=== PATIENT | female | born 1990 | race Caucasian/White ===

== ENCOUNTER 2016-05-12 10:42 | Outpatient (CLI) | payer OTHER ==
[~2016-05-12 10:42] MED LIST: BUSPIRONE HCL5 MG PO; GABAPENTIN600 MG PO; METHADONE HCL10 MG PO; WELLBUTRIN SR150 MG PO
--- NOTE | 2016-05-12 13:02 | DIAGNOSTIC IMAGING REPORT ---
PROCEDURE: US OB RE-EVALUATION INDICATION: SMALL FOR DATES TECHNIQUE: Transabdominal lopes scale and color Doppler imaging was obtained of the third trimester gravid uterus. COMPARISON: 12/25/2015 , 01/18/2016, 02/15/2016 FINDINGS: Single live intrauterine is in vertex presentation. Regular heart rate at 144 beats per minute. Placenta is posterior and has a normal appearance without previa or abruption. No evidence of anterior uterine hemorrhage. The cervix is not well seen, shadowed by the head, but likely measures approximately 3 cm in length. Amniotic fluid index is 13.4 cm, within normal limits for 33-week gestation. Systolic to diastolic umbilical artery ratios ranged from 2.93-3.09, normal. Biparietal diameter 7.4 cm, 29 weeks 4 days Head circumference 27.2 cm, 29 weeks 5 days Abdominal circumference 26.1 cm, 30 weeks 2 days Femur length 6.0 cm, 31 weeks 1 day Estimated weight 1571 plus/minus 236 g, 30 weeks 5 days Composite gestational age 30 weeks 1 day IMPRESSION: 1. Single viable intrauterine , small for gestational age, measuring 30 weeks 1 day on today's exam, 18 days behind the expected gestational age of 32 weeks 5 days. 2. The growth is symmetric. 3. Amniotic fluid volume and systolic to diastolic umbilical artery ratios are normal. 4. Normal posterior placenta without previa. Resolved uterine hemorrhage. 5. Discussed with Dr. Simmons.
== END 2016-05-12 23:00 ==
LOC: US SRH 10:42
DX: O36.5930 Maternal care for other known or suspected poor fetal growth, third trimester, not applicable or unspecified (principal); Z3A.30 30 weeks gestation of pregnancy

== ENCOUNTER 2016-05-22 19:59 | Emergency (ER) | payer OTHER ==
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
--- NOTE | 2016-05-22 20:49 | ED ORDER SUMMARY ---
..... Patient: YUSEF BAKER OrderSheet [facility] VisitID: [id number] [address] [place] [address] 26y, F Registration Date/Time: 05/22/2016 ORDER SHEET Weight: 62.1 kg (stated) Allergies: No Known Drug Allergy GENERAL ORDERS: Suture Set-up: (20:46 05/22/2016 HBivens A.R.N.P.) (20:50 DDean R.N.) Heart Tones (20:46 05/22/2016 HBivens A.R.N.P.) (20:50 DDean R.N.) MEDICATION ORDERS: IV FLUIDS: ORDER SHEET NOTES: [Electronically signed by Celia Mendosa R.N. (21:23 05/22/2016)] [Electronically signed by Cary Keen.R.N.PMaria Eugenia (21:53 05/22/2016)] [Electronically locked/signed by Celia Mendosa R.N. (21:23 05/22/2016)]
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
--- NOTE | 2016-05-22 20:49 | ED ORDER SUMMARY ---
..... Patient: YUSEF BAKER OrderSheet [facility] VisitID: [id number] [address] [place] [address] 26y, F Registration Date/Time: 05/22/2016 ORDER SHEET Weight: 62.1 kg (stated) Allergies: No Known Drug Allergy GENERAL ORDERS: Suture Set-up: (20:46 05/22/2016 HBivens A.R.N.P.) (20:50 DDean R.N.) Heart Tones (20:46 05/22/2016 HBivens A.R.N.P.) (20:50 DDean R.N.) MEDICATION ORDERS: IV FLUIDS: ORDER SHEET NOTES: [Electronically signed by Celia Mendosa R.N. (21:23 05/22/2016)] [Electronically signed by Cary Keen.R.N.PMaria Eugenia (21:53 05/22/2016)] [Electronically locked/signed by Celia Mendosa R.N. (21:23 05/22/2016)]
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
--- NOTE | 2016-05-22 21:54 | ED MED RECONCILIATION SUMMARY ---
Patient: YUSEF BAKER Medication Reconciliation Report [facility] VisitID: [id number] [address] [place] [address] 26y, F Registration Date/Time: 05/22/2016 Weight: 62.1 kg Height/Length: 62 in. BMI: 25.1 ALLERGIES: No Known Drug Allergy The patient's Home Medications are listed below: THE FOLLOWING MEDICATIONS NEED TO BE RECONCILED: Gabapentin Oral The source(s) of the original Home Medication information: patient The following Medications were given to the patient in the Emergency Department: None. The following Medications were prescribed to the patient: None.
--- NOTE | 2016-05-22 21:54 | ED MAR SUMMARY ---
..... Medication Administration Record [facility] [address] [place], [place] [id number] Patient: YUSEF BAKER Visit ID: [id number] 26y, F Weight: 62.1 kg Height/Length: 62 in BMI: 25.1 ALLERGIES: No Known Drug Allergy
--- NOTE | 2016-05-22 21:54 | ED MAR SUMMARY ---
..... Medication Administration Record [facility] [address] [place], [place] [id number] Patient: YUSEF BAKER Visit ID: [id number] 26y, F Weight: 62.1 kg Height/Length: 62 in BMI: 25.1 ALLERGIES: No Known Drug Allergy
--- NOTE | 2016-05-22 21:54 | ED MED RECONCILIATION SUMMARY ---
Patient: YUSEF BAKER Medication Reconciliation Report [facility] VisitID: [id number] [address] [place] [address] 26y, F Registration Date/Time: 05/22/2016 Weight: 62.1 kg Height/Length: 62 in. BMI: 25.1 ALLERGIES: No Known Drug Allergy The patient's Home Medications are listed below: THE FOLLOWING MEDICATIONS NEED TO BE RECONCILED: Gabapentin Oral The source(s) of the original Home Medication information: patient The following Medications were given to the patient in the Emergency Department: None. The following Medications were prescribed to the patient: None.
== END 2016-05-22 20:52 | disposition home or self-care (01) ==
LOC: ED SRH 19:59
DX: S01.511A Laceration without foreign body of lip, initial encounter (principal); M79.1 Myalgia; V47.0XXA Car driver injured in collision with fixed or stationary object in nontraffic accident, initial encounter; Y93.89 Activity, other specified; Y92.9 Unspecified place or not applicable; Y99.9 Unspecified external cause status; Z3A.38 38 weeks gestation of pregnancy

== ENCOUNTER 2016-06-13 10:23 | Outpatient (CLI) | payer OTHER ==
--- NOTE | 2016-06-13 12:56 | DIAGNOSTIC IMAGING REPORT ---
PROCEDURE: US OB RE-EVALUATION INDICATION: REPEAT; SMALL FOR GESTATIONAL AGE TECHNIQUE: Gaona scale, color and spectral Doppler images of the gravid uterus. COMPARISON: OB ultrasound 05/12/2016, 01/18/2016 and 12/25/2015.. FINDINGS: Single intrauterine with vertex presentation, left posterior placenta without previa. Heart rate 121 bpm. ELO measures 14.4 cm. Stomach, kidneys and bladder are grossly normal. Cord ratios 2.9, normal. BPD 8.2 cm, 33 weeks 1 day; head circumference 30.4 cm, 33 weeks 5 days; abdominal circumference 29.4 cm, 33 weeks 2 days; femur length 6.7 cm, 34 weeks 5 days. Composite age of 33 weeks 5 days plus/minus 2 weeks 5 days. CAROLYN 07/27/2016. Estimated weight 2269 g plus/minus 568 g (less than 2nd percentile). IMPRESSION: 1. Single live intrauterine , vertex, 33 weeks 5 days plus/minus 2 weeks 5 days 2. CAROLYN 07/27/2016, 24 days delayed growth, consistent with symmetric IUGR. 3. Estimated weight 2269 g plus/minus 568 g (less than 2nd percentile) 4. Results discussed with Dr. Mares.
== END 2016-06-13 23:00 ==
LOC: US SRH 10:23
DX: Z34.93 Encounter for supervision of normal pregnancy, unspecified, third trimester (principal); Z3A.33 33 weeks gestation of pregnancy

== ENCOUNTER 2016-06-15 17:36 | Outpatient (CLI) | payer OTHER | END 2016-06-15 18:55 | disposition home or self-care (01) | LOC: NST SRH 17:36 → OB SRH 17:38 → NST SRH 18:55 | PROC: 4A0HXCZ Measurement of Products of Conception, Cardiac Rate, External Approach (ICD-10-PCS; principal; 2016-06-15) | DX: O36.5930 Maternal care for other known or suspected poor fetal growth, third trimester, not applicable or unspecified (principal); Z3A.37 37 weeks gestation of pregnancy ==

== ENCOUNTER 2016-09-03 17:06 | Emergency (ER) | payer OTHER ==
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
--- NOTE | 2016-09-03 18:22 | ED ORDER SUMMARY ---
..... Patient: YUSEF BAKER OrderSheet [facility] VisitID: [id number] [address] [place] [address] 26y, F Registration Date/Time: 09/03/2016 ORDER SHEET Weight: 56.6 kg (stated) Allergies: No Known Drug Allergy GENERAL ORDERS: MEDICATION ORDERS: Zofran ODT PO 4 mg (NOW) (18:22 09/03/2016 HBivens A.R.N.P.) (Ack 18:37 KPage-Kuchan R.N.) (18:45 KPage-Kuchan R.N.) Xanax PO 0.5 mg (NOW) (18:22 09/03/2016 HBivens A.R.N.P.) (Ack 18:37 KPage-Kuchan R.N.) (18:45 KPage-Kuchan R.N.) IV FLUIDS: ORDER SHEET NOTES: [Electronically signed by Marcos Nolasco RMaria EugeniaNMaria Eugenia (20:39 09/03/2016)] [Electronically signed by Cary KeenR.N.P. (23:07 09/03/2016)] [Electronically locked/signed by Marcos Nolasco R.N. (20:39 09/03/2016)]
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
--- NOTE | 2016-09-03 18:22 | ED ORDER SUMMARY ---
..... Patient: YUSEF BAKER OrderSheet [facility] VisitID: [id number] [address] [place] [address] 26y, F Registration Date/Time: 09/03/2016 ORDER SHEET Weight: 56.6 kg (stated) Allergies: No Known Drug Allergy GENERAL ORDERS: MEDICATION ORDERS: Zofran ODT PO 4 mg (NOW) (18:22 09/03/2016 HBivens A.R.N.P.) (Ack 18:37 KPage-Kuchan R.N.) (18:45 KPage-Kuchan R.N.) Xanax PO 0.5 mg (NOW) (18:22 09/03/2016 HBivens A.R.N.P.) (Ack 18:37 KPage-Kuchan R.N.) (18:45 KPage-Kuchan R.N.) IV FLUIDS: ORDER SHEET NOTES: [Electronically signed by Marcos Nolasco RMaria EugeniaNMaria Eugenia (20:39 09/03/2016)] [Electronically signed by Cary KeenR.N.P. (23:07 09/03/2016)] [Electronically locked/signed by Marcos Nolasco R.N. (20:39 09/03/2016)]
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
--- NOTE | 2016-09-03 23:07 | ED MED RECONCILIATION SUMMARY ---
Patient: YUSEF BAKER Medication Reconciliation Report [facility] VisitID: [id number] [address] [place] [address] 26y, F Registration Date/Time: 09/03/2016 Weight: 56.6 kg Height/Length: 62 in. BMI: 22.8 ALLERGIES: No Known Drug Allergy The patient's Home Medications are listed below: THE FOLLOWING MEDICATIONS NEED TO BE RECONCILED: Gabapentin Oral The source(s) of the original Home Medication information: patient The following Medications were given to the patient in the Emergency Department: Zofran ODT [PO] PO 4 mg, administered: 09/03/2016 6:45:00 PM Xanax [PO] PO 0.5 mg, administered: 09/03/2016 6:45:00 PM The following Medications were prescribed to the patient: Xanax 0.25 mg: Take 1 orally every 8 hours as needed for anxiety. Dispense fifteen (15). No refills. Substitution is permissible. -- Cary Keen A.R.N.P.
--- NOTE | 2016-09-03 23:07 | ED DISCHARGE INSTRUCTIONS ---
Patient: YUSEF BAKER General Instructions [facility] VisitID: [id number] [place] [address] 26y, F Registration Date/Time: 09/03/2016 Chronic substance abuse- methadone and oxycodone with intoxication and anxiety. INSTRUCTIONS Warnings: GENERAL WARNINGS: Return or contact your physician immediately if your condition worsens or changes unexpectedly, if not improving as expected, or if other problems arise. Specifically return if problem worsens. Prescription Medications: Xanax 0.25 mg: Take 1 orally every 8 hours as needed for anxiety. Dispense fifteen (15). No refills. Substitution is permissible. Follow-up: Follow up with your doctor Sunday as scheduled even if well. Summary of care provided to patient. Understanding of the discharge instructions verbalized by patient. ADDITIONAL INFORMATION Drug Abuse Use and abuse of such drugs as marijuana, amphetamines (speed, crank), cocaine, heroin or prescription pain medicines (Vicodin, codeine), sedatives and sleeping pills (Valium, Klonopin), PCP, mescaline and LSD may lead to addiction or dependence. Once this occurs, you are at greater risk for any of the following: Craving for the drug and unable to stop using the drug even though you think you want to stop (psychological dependence) Drug withdrawal symptoms if you stop taking the drug (physical dependence) Loss of your job or your family Arrest, conviction and skilled nursing sentence for possession of an illegal substance or for driving under the influence of such a substance Accidental injuries to yourself or others while you are under the influence of the drug (in a car or at home). HIV infection (much greater risk if you use IV drugs) Other sexually transmitted diseases (herpes, chlamydia, gonorrhea and others) Severe and fatal infection of the heart valves (if you use IV drugs) Stroke, heart attack, hepatitis B or C, kidney failure from overdose Home Care: Admit you have a drug problem. Ask for help from your family and close friends. Seek professional help. This could be in the form of individual psychotherapy or counseling or an outpatient, inpatient, or residential drug treatment program. Join a self-help group for drug abuse. Avoid friends who abuse drugs themselves or tempt you to continue abusing drugs. Eat a balanced diet and begin a regular exercise program. Follow Up with your doctor or as advised by our staff. Contact one of the resources below for help. National [place] on Alcoholism and Drug Dependence www.ncadd.org 477-075-DVMI Narcotics Anonymous www.na.org 156-630-0943 National Alcohol and Substance Abuse Information Center (for referral to treatment programs) www.[employer] 370-451-3282 Get Prompt Medical Attention if any of the following occur: Agitation, anxiety, unable to sleep Unintended weight loss (more than 10 to 15 pounds over 3 months) Seizure Chest pain Fever of 100.4F (38C) or higher, or as directed by your healthcare provider Excess drowsiness or inability to be awakened Shortness of breath Slow breathing under 8 breaths per minute Cough with colored sputum Redness, swelling or tenderness at an injection site Opiate Abuse Use and abuse of heroin or prescription pain medicines (Vicodin, codeine) may lead to physical ADDICTION or psychological DEPENDENCE. Once this occurs, you are at greater risk for any of the following: - Craving for the drug and unable to stop using the drug even though you think you want to stop (psychological dependence) - Drug withdrawal symptoms if you stop taking the drug (physical addiction) - Loss of your job or your family - Arrest, conviction and skilled nursing sentence for possession of an illegal substance or for driving under the influence of such a substance - Accidental injuries to yourself or others while you are under the influence of the drug (in a car or at home). - HIV infection (much greater risk if you use IV drugs) - Other sexually transmitted diseases (Herpes, chlamydia, gonorrhea and others) - Severe and fatal infection of the heart valves (if you use IV drugs) - Stroke, heart attack, hepatitis B or C, kidney failure - from overdose Home Care: 1) Admit you have a drug problem. Ask for help from your family and close friends. 2) Seek professional help. This could be individual psychotherapy, counseling, or a drug treatment program (outpatient or residential). 3) Join a self-help group for drug abuse. 4) Avoid friends who abuse drugs themselves or tempt you to continue your habit 5) Eat a balanced diet and begin a regular exercise program. Follow Up with your doctor or as advised by our staff. Contact one of the resources below for help. National Algaaciq on Alcoholism and Drug Dependence, www.ncadd.org 018-879-TYHJ Narcotics Anonymous (check your phone book for a local listing or call 205-468-2501) www.na.org National Alcohol and Substance Abuse Information Center (for referral to treatment programs) Www.Care.com 997-924-8922 Get Prompt Medical Attention if any of the following occur: -- Symptoms of withdrawal (agitation, anxiety, trembling, sweats, diarrhea, unable to sleep) -- Chest pain -- Unexplained fever over 100.4 F (38.0 C) -- Excessive drowsiness or inability to be awakened -- Slow breathing under 8 breaths per minute -- Shortness of breath or cough with colored sputum -- Redness, swelling or tenderness at an injection site Pain Management: Chronic You have a painful condition that has required frequent use of narcotic-type pain medicine. We would like to see that you receive the best possible care for your problem. To achieve this, you must have apersonal physician who can supervise a treatment plan for you. You may locate a personal physician on your own or contact one of the doctors whose name has been given to you. If your physician determines that you need to visit the ER for pain control, that doctor should provide you with a PAIN CONTRACT. This is a letter from your doctor which describes what pain medicine you may receive, how much and how often. You sign it agreeing to the terms of the treatment plan. Bring this with you each time you come to this facility. It will help the Emergency Physician provide the proper treatment for you with minimal delay. Please Note: IN THE FUTURE YOU WILL NOT BE ABLE TO RECEIVE Narcotic Pain Medicine From This Facility Without A Pain Contract Or Telephone Approval From Your Personal Physician. Alprazolam Oral tablet What is this medicine? ALPRAZOLAM (al PRAY isabell manning) is a benzodiazepine. It is used to treat anxiety and panic attacks. How should I use this medicine? Take this medicine by mouth with a glass of water. Follow the directions on the prescription label. Take your medicine at regular intervals. Do not take it more often than directed. If you have been taking this medicine regularly for some time, do not suddenly stop taking it. You must gradually reduce the dose or you may get severe side effects. Ask your doctor or health day care provider for advice. Even after you stop taking this medicine it can still affect your body for several days. Talk to your solution strategist regarding the use of this medicine in children. Special care may be needed. What side effects may I notice from receiving this medicine? Side effects that you should report to your doctor or health day care provider as soon as possible: allergic reactions like skin rash, itching or hives, swelling of the face, lips, or tongue confusion, forgetfulness depression difficulty sleeping difficulty speaking feeling faint or lightheaded, falls mood changes, excitability or aggressive behavior muscle cramps trouble passing urine or change in the amount of urine unusually weak or tired Side effects that usually do not require medical attention (report to your doctor or health day care provider if they continue or are bothersome): change in sex drive or performance changes in appetite What may interact with this medicine? Do not take this medicine with any of the following medications: certain medicines for HIV infection or AIDS ketoconazole itraconazole This medicine may also interact with the following medications: control pills certain macrolide antibiotics like clarithromycin, erythromycin, troleandomycin cimetidine cyclosporine ergotamine grapefruit juice herbal or dietary supplements like kava kava, melatonin, dehydroepiandrosterone, DHEA, Horacio's Wort or valerian imatinib, [id number] isoniazid levodopa medicines for depression, anxiety, or psychotic disturbances prescription pain medicines rifampin, rifapentine, or rifabutin some medicines for blood pressure or heart problems some medicines for seizures like carbamazepine, oxcarbazepine, phenobarbital, phenytoin, primidone What if I miss a dose? If you miss a dose, take it as soon as you can. If it is almost time for your next dose, take only that dose. Do not take double or extra doses. Where should I keep my medicine? Keep out of the reach of children. This medicine can be abused. Keep your medicine in a safe place to protect it from theft. Do not share this medicine with anyone. Selling or giving away this medicine is dangerous and against the law. Store at room temperature between 20 and 25 degrees C (68 and 77 degrees F). Throw away any unused medicine after the expiration date. What should I tell my health care provider before I take this medicine? They need to know if you have any of these conditions: an alcohol or drug abuse problem bipolar disorder, depression, psychosis or other mental health conditions glaucoma kidney or liver disease lung or breathing disease myasthenia gravis Parkinson's disease porphyria seizures or a history of seizures suicidal thoughts an unusual or allergic reaction to alprazolam, other benzodiazepines, foods, dyes, or preservatives or trying to get breast-feeding What should I watch for while using this medicine? Visit your doctor or health day care provider for regular checks on your progress. Your body can become dependent on this medicine. Ask your doctor or health day care provider if you still need to take it. You may get drowsy or dizzy. Do not drive, use machinery, or do anything that needs mental alertness until you know how this medicine affects you. To reduce the risk of dizzy and fainting spells, do not stand or sit up quickly, especially if you are an older patient. Alcohol may increase dizziness and drowsiness. Avoid alcoholic drinks. Do not treat yourself for coughs, colds or allergies without asking your doctor or health day care provider for advice. Some ingredients can increase possible side effects. You have been given the following additional information: Drug Abuse Opiate Abuse Drug Seeking Behavior, Pain Contract Required Alprazolam Oral tablet (Electronically signed by Cary Keen A.R.N.P. 09/03/2016 23:07)
--- NOTE | 2016-09-03 23:07 | ED DISCHARGE INSTRUCTIONS ---
Patient: YUSEF BAKER General Instructions [facility] VisitID: [id number] [place] [address] 26y, F Registration Date/Time: 09/03/2016 Chronic substance abuse- methadone and oxycodone with intoxication and anxiety. INSTRUCTIONS Warnings: GENERAL WARNINGS: Return or contact your physician immediately if your condition worsens or changes unexpectedly, if not improving as expected, or if other problems arise. Specifically return if problem worsens. Prescription Medications: Xanax 0.25 mg: Take 1 orally every 8 hours as needed for anxiety. Dispense fifteen (15). No refills. Substitution is permissible. Follow-up: Follow up with your doctor Sunday as scheduled even if well. Summary of care provided to patient. Understanding of the discharge instructions verbalized by patient. ADDITIONAL INFORMATION Drug Abuse Use and abuse of such drugs as marijuana, amphetamines (speed, crank), cocaine, heroin or prescription pain medicines (Vicodin, codeine), sedatives and sleeping pills (Valium, Klonopin), PCP, mescaline and LSD may lead to addiction or dependence. Once this occurs, you are at greater risk for any of the following: Craving for the drug and unable to stop using the drug even though you think you want to stop (psychological dependence) Drug withdrawal symptoms if you stop taking the drug (physical dependence) Loss of your job or your family Arrest, conviction and care home sentence for possession of an illegal substance or for driving under the influence of such a substance Accidental injuries to yourself or others while you are under the influence of the drug (in a car or at home). HIV infection (much greater risk if you use IV drugs) Other sexually transmitted diseases (herpes, chlamydia, gonorrhea and others) Severe and fatal infection of the heart valves (if you use IV drugs) Stroke, heart attack, hepatitis B or C, kidney failure from overdose Home Care: Admit you have a drug problem. Ask for help from your family and close friends. Seek professional help. This could be in the form of individual psychotherapy or counseling or an outpatient, inpatient, or residential drug treatment program. Join a self-help group for drug abuse. Avoid friends who abuse drugs themselves or tempt you to continue abusing drugs. Eat a balanced diet and begin a regular exercise program. Follow Up with your doctor or as advised by our staff. Contact one of the resources below for help. National [place] on Alcoholism and Drug Dependence www.ncadd.org 148-959-YJVD Narcotics Anonymous www.na.org 756-172-2685 National Alcohol and Substance Abuse Information Center (for referral to treatment programs) www.ePatientFinder 832-340-1005 Get Prompt Medical Attention if any of the following occur: Agitation, anxiety, unable to sleep Unintended weight loss (more than 10 to 15 pounds over 3 months) Seizure Chest pain Fever of 100.4F (38C) or higher, or as directed by your healthcare provider Excess drowsiness or inability to be awakened Shortness of breath Slow breathing under 8 breaths per minute Cough with colored sputum Redness, swelling or tenderness at an injection site Opiate Abuse Use and abuse of heroin or prescription pain medicines (Vicodin, codeine) may lead to physical ADDICTION or psychological DEPENDENCE. Once this occurs, you are at greater risk for any of the following: - Craving for the drug and unable to stop using the drug even though you think you want to stop (psychological dependence) - Drug withdrawal symptoms if you stop taking the drug (physical addiction) - Loss of your job or your family - Arrest, conviction and care home sentence for possession of an illegal substance or for driving under the influence of such a substance - Accidental injuries to yourself or others while you are under the influence of the drug (in a car or at home). - HIV infection (much greater risk if you use IV drugs) - Other sexually transmitted diseases (Herpes, chlamydia, gonorrhea and others) - Severe and fatal infection of the heart valves (if you use IV drugs) - Stroke, heart attack, hepatitis B or C, kidney failure - from overdose Home Care: 1) Admit you have a drug problem. Ask for help from your family and close friends. 2) Seek professional help. This could be individual psychotherapy, counseling, or a drug treatment program (outpatient or residential). 3) Join a self-help group for drug abuse. 4) Avoid friends who abuse drugs themselves or tempt you to continue your habit 5) Eat a balanced diet and begin a regular exercise program. Follow Up with your doctor or as advised by our staff. Contact one of the resources below for help. National [place] on Alcoholism and Drug Dependence, www.ncadd.org 474-911-NQUJ Narcotics Anonymous (check your phone book for a local listing or call 016-615-6291) www.na.org National Alcohol and Substance Abuse Information Center (for referral to treatment programs) Www.[employer] 212-421-1328 Get Prompt Medical Attention if any of the following occur: -- Symptoms of withdrawal (agitation, anxiety, trembling, sweats, diarrhea, unable to sleep) -- Chest pain -- Unexplained fever over 100.4 F (38.0 C) -- Excessive drowsiness or inability to be awakened -- Slow breathing under 8 breaths per minute -- Shortness of breath or cough with colored sputum -- Redness, swelling or tenderness at an injection site Pain Management: Chronic You have a painful condition that has required frequent use of narcotic-type pain medicine. We would like to see that you receive the best possible care for your problem. To achieve this, you must have apersonal physician who can supervise a treatment plan for you. You may locate a personal physician on your own or contact one of the doctors whose name has been given to you. If your physician determines that you need to visit the ER for pain control, that doctor should provide you with a PAIN CONTRACT. This is a letter from your doctor which describes what pain medicine you may receive, how much and how often. You sign it agreeing to the terms of the treatment plan. Bring this with you each time you come to this facility. It will help the Emergency Physician provide the proper treatment for you with minimal delay. Please Note: IN THE FUTURE YOU WILL NOT BE ABLE TO RECEIVE Narcotic Pain Medicine From This Facility Without A Pain Contract Or Telephone Approval From Your Personal Physician. Alprazolam Oral tablet What is this medicine? ALPRAZOLAM (al PRAY isabell manning) is a benzodiazepine. It is used to treat anxiety and panic attacks. How should I use this medicine? Take this medicine by mouth with a glass of water. Follow the directions on the prescription label. Take your medicine at regular intervals. Do not take it more often than directed. If you have been taking this medicine regularly for some time, do not suddenly stop taking it. You must gradually reduce the dose or you may get severe side effects. Ask your doctor or health resident caregiver for advice. Even after you stop taking this medicine it can still affect your body for several days. Talk to your pmp regarding the use of this medicine in children. Special care may be needed. What side effects may I notice from receiving this medicine? Side effects that you should report to your doctor or health resident caregiver as soon as possible: allergic reactions like skin rash, itching or hives, swelling of the face, lips, or tongue confusion, forgetfulness depression difficulty sleeping difficulty speaking feeling faint or lightheaded, falls mood changes, excitability or aggressive behavior muscle cramps trouble passing urine or change in the amount of urine unusually weak or tired Side effects that usually do not require medical attention (report to your doctor or health resident caregiver if they continue or are bothersome): change in sex drive or performance changes in appetite What may interact with this medicine? Do not take this medicine with any of the following medications: certain medicines for HIV infection or AIDS ketoconazole itraconazole This medicine may also interact with the following medications: control pills certain macrolide antibiotics like clarithromycin, erythromycin, troleandomycin cimetidine cyclosporine ergotamine grapefruit juice herbal or dietary supplements like kava kava, melatonin, dehydroepiandrosterone, DHEA, Horacio's Wort or valerian imatinib, [id number] isoniazid levodopa medicines for depression, anxiety, or psychotic disturbances prescription pain medicines rifampin, rifapentine, or rifabutin some medicines for blood pressure or heart problems some medicines for seizures like carbamazepine, oxcarbazepine, phenobarbital, phenytoin, primidone What if I miss a dose? If you miss a dose, take it as soon as you can. If it is almost time for your next dose, take only that dose. Do not take double or extra doses. Where should I keep my medicine? Keep out of the reach of children. This medicine can be abused. Keep your medicine in a safe place to protect it from theft. Do not share this medicine with anyone. Selling or giving away this medicine is dangerous and against the law. Store at room temperature between 20 and 25 degrees C (68 and 77 degrees F). Throw away any unused medicine after the expiration date. What should I tell my health care provider before I take this medicine? They need to know if you have any of these conditions: an alcohol or drug abuse problem bipolar disorder, depression, psychosis or other mental health conditions glaucoma kidney or liver disease lung or breathing disease myasthenia gravis Parkinson's disease porphyria seizures or a history of seizures suicidal thoughts an unusual or allergic reaction to alprazolam, other benzodiazepines, foods, dyes, or preservatives or trying to get breast-feeding What should I watch for while using this medicine? Visit your doctor or health resident caregiver for regular checks on your progress. Your body can become dependent on this medicine. Ask your doctor or health resident caregiver if you still need to take it. You may get drowsy or dizzy. Do not drive, use machinery, or do anything that needs mental alertness until you know how this medicine affects you. To reduce the risk of dizzy and fainting spells, do not stand or sit up quickly, especially if you are an older patient. Alcohol may increase dizziness and drowsiness. Avoid alcoholic drinks. Do not treat yourself for coughs, colds or allergies without asking your doctor or health resident caregiver for advice. Some ingredients can increase possible side effects. You have been given the following additional information: Drug Abuse Opiate Abuse Drug Seeking Behavior, Pain Contract Required Alprazolam Oral tablet (Electronically signed by Cary Keen A.R.N.P. 09/03/2016 23:07)
--- NOTE | 2016-09-03 23:07 | ED MED RECONCILIATION SUMMARY ---
Patient: YUSEF BAKER Medication Reconciliation Report [facility] VisitID: [id number] [address] [place] [address] 26y, F Registration Date/Time: 09/03/2016 Weight: 56.6 kg Height/Length: 62 in. BMI: 22.8 ALLERGIES: No Known Drug Allergy The patient's Home Medications are listed below: THE FOLLOWING MEDICATIONS NEED TO BE RECONCILED: Gabapentin Oral The source(s) of the original Home Medication information: patient The following Medications were given to the patient in the Emergency Department: Zofran ODT [PO] PO 4 mg, administered: 09/03/2016 6:45:00 PM Xanax [PO] PO 0.5 mg, administered: 09/03/2016 6:45:00 PM The following Medications were prescribed to the patient: Xanax 0.25 mg: Take 1 orally every 8 hours as needed for anxiety. Dispense fifteen (15). No refills. Substitution is permissible. -- Cary Keen A.R.N.P.
--- NOTE | 2016-09-03 23:07 | ED MAR SUMMARY ---
..... Medication Administration Record [facility] [address] [place] [address] Patient: YUSEF BAKER Visit ID: [id number] 26y, F Weight: 56.6 kg Height/Length: 62 in BMI: 22.8 ALLERGIES: No Known Drug Allergy Given 18:45 09/03/2016 Marcos Nolasco RJeff Medication Administered: ZOFRAN ODT [PO] (ONDANSETRON), Dose: 4 mg PO. Medication Ordered: Zofran ODT PO 4 mg (NOW). Given 18:45 09/03/2016 Marcos Nolasco, RMaria EugeniaNMaria Eugenia Medication Administered: XANAX [PO] (ALPRAZOLAM), Dose: 0.5 mg PO. Medication Ordered: Xanax PO 0.5 mg (NOW).
--- NOTE | 2016-09-03 23:07 | ED MAR SUMMARY ---
..... Medication Administration Record [address] [place] [address] Patient: YUSEF BAKER Visit ID: [id number] 26y, F Weight: 56.6 kg Height/Length: 62 in BMI: 22.8 ALLERGIES: No Known Drug Allergy Given 18:45 09/03/2016 Marcos Nolasco RJeff Medication Administered: ZOFRAN ODT [PO] (ONDANSETRON), Dose: 4 mg PO. Medication Ordered: Zofran ODT PO 4 mg (NOW). Given 18:45 09/03/2016 Marcos Nolasco, RMaria EugeniaNMaria Eugenia Medication Administered: XANAX [PO] (ALPRAZOLAM), Dose: 0.5 mg PO. Medication Ordered: Xanax PO 0.5 mg (NOW).
== END 2016-09-03 19:49 | disposition home or self-care (01) ==
LOC: ED SRH 17:06
DX: F11.120 Opioid abuse with intoxication, uncomplicated (principal); F41.9 Anxiety disorder, unspecified; Z72.0 Tobacco use